=== PATIENT | male | born 1950 | race Caucasian/White ===

== ENCOUNTER → 2025-02-05 10:54 | Outpatient (REF) | payer OTHER, SELFPAY | LOC: HWRAD 10:54 | PROVIDERS: ATTENDING PHYSICIAN Internal Medicine | DX: M54.50 Low back pain, unspecified (principal); G89.29 Other chronic pain | CPT/HCPCS: 72110; 72190 ==

== ENCOUNTER → 2025-04-30 15:34 | Outpatient (REF) | payer OTHER, SELFPAY | LOC: RAD 15:34 | PROVIDERS: ATTENDING PHYSICIAN Specialist; FAMILY PHYSICIAN Internal Medicine | DX: M62.08 Separation of muscle (nontraumatic), other site (principal); R19.05 Periumbilic swelling, mass or lump | CPT/HCPCS: 74160; Q9967 ==